=== PATIENT | female | born 1985 | race Caucasian/White ===

== ENCOUNTER 2021-01-10 08:05 | Outpatient (REF) | payer OTHER, SELFPAY ==
[2021-01-10 11:05] LABS: MANUAL DIFF FLAG NO
[2021-01-10 11:26] LABS: Basophils Percent Auto 0.6 % (0-2); Eosinophils Absolute Auto 0.1 X10*3/uL (0.0-0.4); Eosinophils Percent Auto 2.5 % (0-4); Hematocrit 38.5 % (37-47); Hemoglobin 12.4 g/dl (12.0-16.0); Imm Gran Abs Auto 0.01 X10*3/uL (0.00-0.03); Imm Gran Pct Auto 0.2 % (0.0-0.4); Lymphocytes Absolute Auto 1.7 X10*3/uL (1.2-4.9); Lymphocytes Percent Auto 36.7 % (20-40); Mean Corpuscular HGB Conc 32.2 g/dl (31.0-35.0); Mean Corpuscular Hemoglobin 30.2 pg (27.0-33.0); Mean Corpuscular Volume 93.9 fL (80-98); Mean Platelet Volume 12.6 fL (9.4-12.3); Monocytes Absolute Auto 0.4 X10*3/uL (0.1-1.2); Monocytes Percent Auto 8.9 % (2-11); Neutrophils Absolute Auto 2.4 X10*3/uL (2.0-8.3); Neutrophils Percent Auto 51.1 % (45-73); Platelet Count 194 X10*3/uL (160-400); Red Cell Distribution Width 13.1 % (11.0-16.0); White Blood Count 4.7 X10*3/uL (4.8-10.8)
[2021-01-10 12:05] LABS: HIV AB/AG Nonreactive (Nonreactive); HIV Num 1 0.08 S/CO (0.00-0.99)
[2021-01-10 12:29] LABS: Anion Gap 15 (12-20); Blood Urea Nitrogen 10 mg/dL (9-16); Calcium 9.5 mg/dL (8.4-10.2); Carbon Dioxide 27 mmol/L (22-29); Chloride 105 mmol/L (96-108); Cholesterol 186 mg/dL; Estimated Glomerular Filt Rate > 60; Glucose Fasting 78 mg/dL (60-99); HDL Cholesterol 55 mg/dL; LDL Cholesterol Calculated 121 mg/dl; Potassium 4.8 mmol/L (3.3-5.1); Sodium 142 mmol/L (135-145); Triglycerides 51 mg/dL
[2021-01-10 12:32] LABS: TSH reflex Free T4 2.41 uIU/mL (0.32-4.0); Vitamin D 25-OH Total 36.1 ng/mL (>30)
== END 2021-01-10 08:06 | disposition home or self-care (01) ==
LOC: HO.HMGCLDS 08:05
PROVIDERS: PCP Internal Medicine; Visit Provider Internal Medicine
DX: Z00.00 Encounter for general adult medical examination without abnormal findings (principal); I10 Essential (primary) hypertension; R53.83 Other fatigue; Z11.3 Encounter for screening for infections with a predominantly sexual mode of transmission
CPT/HCPCS: 36415; 80048; 80061; 82306; 84443; 85025; 87389

== ENCOUNTER 2021-10-19 13:00 | Outpatient (RCR) | payer OTHER, SELFPAY ==
--- NOTE | 2021-09-19 08:05 | MHC.PT.EP ---
[facility] [place] [facility] [place] [facility] [place] [facility] [address] Mckenna Ramirez [address] [phone] F: [phone] F: [phone] F: [phone] F: [phone] Physical Therapy Plan of Care Date of Evaluation: Date of Surgery: Diagnosis: This is a 35 yo female presenting to skilled PT with a script for pain in L hip. Assessment: This is a 35 yo female presenting to skilled PT with a script for pain in L hip. Patient reports pain has been ongoing for some time since prior to [place]. She had PT a few times and pain has come and gone but more recently it has gotten worse with strenuous activities (squatting, sleeping on the L side, jumping, running and stairs). Patient's pain is located anterior hip at the L ASIS and is described as stabbing and achy. No clicking or locking noted. She does a Carine Correa work out and modifies this to what she can tolerate. She has a 2 year old at home who is roughly 20ish pounds. She lives in a 2 floor home. She also notes that she has urinary urgency with higher level activities since giving . Assessment reveals pain that ranges up to a 7/10. She demos decreased hip and core strength, impaired joint mobility, s/s consistent with SIJ and pelvic floor involvement as well as gross functional decline with stairs, squatting and higher level activities. She is a good candidate for skilled PT 2x/wk for 5 wks. Our plan is to trial PT for hip pain and transition to pelvic floor for 1-2 visits before she moves at the end of September. Frequency and Duration: The patient will be seen 2x/wk for 5 wks Short Term Goals: I in HEP Demo equal ASIS without manual need for intervention [facility] Goals: Demos functional ROM and strength Improve Lefs by at least 10 points Improve pain at the worst to no more than 2/10 Demo proper lifting techniques without increase in pain Tolerate dynamic work out without modification or pain Treatment Plan: Modalities to reduce pain, spasms and effusion. Manual therapy to restore motion and function. Therapeutic exercise to improve strength and flexibility. Neuromuscular re-education for posture and balance. Therapeutic activities to return to functional activities of daily living. Electronically signed by: Laly Redmond PT Please sign and return to therapist. Thank you for your referral.
--- NOTE | 2021-10-19 15:11 | MHC.PT.DC ---
[facility] [place] Office [place] Office [place] Office [address] Mckenna Ramirez [address] [phone] F: [phone] F: [phone] F: [phone] F: [phone] Physical Therapy Discharge Report Diagnosis: This is a 35 yo female presenting to skilled PT with a script for pain in L hip. Date of Surgery: Date of Evaluation: 09/18/21 Date of Discharge: 10/19/21 Treatments to Date: 7 Cancellations to Date: 0 No Shows to Date: 0 Discharge Status: Improved Function Independent with HEP Discharge Summary: Extensive education and reiview of pressure management with awareness of breath, knack with jumping, urge deference techniques, toileting mechanics, and decreased pace of exercises at home with gradually increasing pace and difficulty. Handouts were given re this information and we initiated mini hops and squats with focus on landing with exhale and awareness of pressure. Initially pt with very hard landing keeping knees straight and inhaling - cues for soft knees, shoulders and jaw and exhale on land with good carryover. She reports she will continue with these exercises and call if any questions. She is now d/c as she is moving. No further questions at this time. Electronically signed by: Camille Pearson PT Please sign and return to therapist. Thank you for your referral.
== END 2021-10-19 15:11 | disposition home or self-care (01) ==
LOC: HO.PTCHIC 13:00
PROVIDERS: PCP Internal Medicine; Visit Provider Internal Medicine
DX: M25.552 Pain in left hip (principal); R30.0 Dysuria; N94.10 Unspecified dyspareunia
CPT/HCPCS: 97110; 97112; 97140; 97162; 97164